=== PATIENT | female | born 1990 | race Caucasian/White ===

== ENCOUNTER 2023-12-01 06:27 | Inpatient (IN) ==
--- OUTSIDE RECORDS SUMMARY | 2023-12-01 06:35 | External Medical Summary | Summary of Care ---
Author Name Unknown Organization [facility] Address [address] [place] [address] Phone [phone] Care Team Providers Care Lien Searcher Name Role Phone Unavailable Primary Care Provider Unavailabl e Reason for Visit * Reason Onset Date Comments Medication Refill 11/28/2023 Encounter Details Date Type Department Care Team (Late st Contact Info) Description 11/28/2023 Refill Family Practice [facility] [address] [place] [id number] Phani Ivy MD [address] [place] [id number] Delayed sleep phase syndrome Allergies Active Allergy Reactions Criticality Noted Date Comments Amoxicillin-Pot Clavulanate Hives High 10/04/19 22 Dust Hives Medium 10/04/2021 documented as of this encounter (statuses as of 11/30/2023) Medications Medication Sig Dispensed Refills Start Date End Date Status Specialty Vitamins Products (VITAMINS FOR HAIR) TABS Take by mouth. 0 Active Ventolin HFA 108 (90 Base) MCG/ACT Inhalation Aerosol SolutionIndications:Ac [place] cough,Pneumonitis Inhale 2 Puffs by mouth every 4 hours as needed for Wheezing. 1 g 0 07/29/2022 Active Naratriptan HCl 2.5 MG Oral Tablet (Amerge)Indications:Mi graine without aura and without status migrainosus, not intractable Take 1 Tablet by mouth as needed for Migraine. at onset of migraine headache, may repeat once after four hours. Up to two pills in 24 hours. 8 Tablet 1 01/16/2023 Active Montelukast Sodium 10 MG Oral Tablet (Singulair) Take 1 tablet daily each evening to prevent allergic nasal symptoms 90 Tablet 3 06/24/2023 Active Cetirizine HCl 10 MG Oral Tablet (ZyrTEC) TAKE 1 TABLET BY MOUTH EVERY DAY IN THE EVENING 90 Tablet 3 09/01/2023 Active tiZANidine HCl 4 MG Oral Tablet (Zanaflex)Indications: Cervicalgia,Unspecifie d temporomandibular joint disorder, unspecified side TAKE 1 TABLET BY MOUTH EVERY 6 HOURS NEEDED FOR MUSCLE SPASMS. 30 Tablet 1 10/21/2023 Active Acetaminophen-Codeine 300-30 MG Oral Tablet (Tylenol #3)Indications:Chronic midline thoracic back pain Take 1 Tablet by mouth every 4 hours as needed for Pain, Moderate. For ongoing therapy 60 Tablet 0 11/20/2023 Active Zolpidem Tartrate 10 MG Oral Tablet (Ambien)Indications:De layed sleep phase syndrome Take 1 tab at bedtime as needed for insomnia. Use sparingly. Not intended for daily use. 30 Tablet 0 11/30/2023 Active Zolpidem Tartrate 10 MG Oral Tablet (Ambien)Indications:De layed sleep phase syndrome Take 1 tab at bedtime as needed for insomnia. Use sparingly. Not intended for daily use. 30 Tablet 0 11/01/2023 4 Discontinue d(Refill) documented as of this encounter (statuses as of 11/30/2023) Active Problems Problem Noted Date Diagnosed Date Mixed rhinitis 05/23/2022 Endometriosis 02/05/2022 History of 2019 novel coronavirus disease (COVID -19) 10/30/2021 Dysfunction of both eustachian tubes 04/20/2020 MEGGAN positive 10/25/2019 Raynaud's disease without gangrene 10/25/2019 Fibromyalgia 10/25/2019 Recurrent urticaria 10/05/2019 GOPI (generalized anxiety disorder) 10/05/2019 Migraine without aura and wi thout status migrainosus, not intractable 02/15/2019 Migraine variant 01/19/2019 Chronic midline thoracic back pain 12/29/2018 Cervicogenic headache 11/19/2018 Adolescent idiopathic scoliosis of thoracolumbar region 12/30/2016 Allergic rhinitis 03/23/2013 Delayed sleep phase syndrome 07/17/2010 IBS (irritable bowel syndrome) documented as of this encounter (statuses as of 11/30/2023) Resolved Problems Problem Noted Date Diagnosed Date Resolved Date Chest tightness 10/05/2019 12/10/2019 Chronic migraine 12/30/2016 01/14/2019 Cough 09/13/2015 12/13/2015 Tick bite 07/11/2014 12/13/2015 Urticaria 03/23/2013 10/05/2019 Overview: since age 13 Routine medical exam 07/11/2011 012 Migraine with aura 07/11/2011 9 BACKACHE NOS 11/21/2005 07/11/2011 Hypermobility syndrome 11/21/200507/11 Other acne 04/08/2003 07/11/2011 BENIGN NEOPLASM SKIN NOS 03/14/2003 documented as of this encounter (statuses as of 11/30/2023) Immunizations Name Administration Dates Next Due DTP Vaccine 05/01/1989 HPV Vaccine, 4-Valent 08/15/2009,04/15/2009,09/2008 Haemophilius B (HIB), unspecified 05/01/1989 OPV - Polio Virus Vaccine (Oral) 05/01/1989 PPD 09/30/2018, 6,08/31/2014,2010 Seasonal Influenza, PF, 6 M & above, IM , (FluLaval or Fluzone) 11/12/2021,05/23/2020,07/26/2019,2017 Seasonal Influenza, Quadriva lent, No Preserve, IM 10/08/2016,06/14/2015 Seasonal Influenza, Split, I IV3, With Preserve, Inj 05/19/2014,07/13/2013,06/11/2012,2010,06/08/2010 TDAP (age 11 and older)(Adacel) 07/11/2011 documented as of this encounter Social History Tobacco Use Types Packs/Day Years Used Date Smoking Tobacco: Never Passive Smoke Exposure: Yes Smokeless Tobacco: Never Comments:parents smoke, solomon mireya in a smoking baar Alcohol Use Standard Drinks/Week Comments Not Currently 0 (1 standard drink = 0.6 oz pure alcohol) glass of wine couple times per week PHQ-2 Answer Date Recorded PHQ Adult Total Score 1 11/12/2021 Hunger Vital Sign Answer Date Recorded Within the past 12 months, y ou worried that your food would run out before you got the money to buy more. Never true 03/10/20 23 Within the past 12 months, t he food you bought just didn't last and you didn't have money to get more. Never true 03/10/2023 Sex and Gender Information Value Date Recorded Sex Assigned at Female 03/10/2023 8:48 AM EDT Gender Identity Female 03/10/2023 8:48 AM EDT Sexual Orientation Straight 01/31/2020 10 :51 AM EDT Job Start Date Occupation Industry Not on file Not on file Not on file documented as of this encounter Miscellaneous Notes * Telephone Encounter - Phani Ivy MD - 11/30/2023 10:34 PM EDT Signed Prescriptions: Disp Refills Zolpidem Tartrate 10 MG Oral Tablet (Ambie*30 Tab*0 Sig: Take 1 tab at bedtime as needed for insomnia. Use sparingly. Not intended for daily use.Authorizing Provider: PHANI IVY * Telephone Encounter - Phani Ivy MD - 11/30/2023 10:33 PM EDT Schedule CPE / refill eval with Dr. Briseno--prev saw Dr Cuevas * Telephone Encounter - Phani Mai [facility] - 11/30/2023 1:07 AM EDT Pending Prescriptions: Disp Refills Zolpidem Tartrate 10 MG Oral Tablet (Ambie*30 Tab*0 Sig: Take 1 tab at bedtime as needed for insomnia. Use sparingly. Not intended for daily use. * Telephone Encounter - Phani Mai [facility] - 11/30/2023 1:04 AM EDT I have reviewed the patients controlled substance dispensing history in the Prescription Drug Monitoring Program in compliance with the [facility] regulations before prescribing a controlled substance. PDMP checked on 11/30/2023. Pending Prescriptions: Disp Refills Zolpidem Tartrate 10 MG Oral Tablet (Ambi*30 Tab*0 Sig: Take 1 tab at bedtime as needed for insomnia. Use sparingly. Not intended for daily use. Last Visit: 03/10/2023 (in office), Visit date not found (telemedicine) Next Visit: Visit date not found Date medication was last filled: 11/01/23 Date medication is due for refill: 11/30/23 [facility]acy: [id number] [address] Is this request for a controlled substance? Yes and Urine Drug Screen was completed Toxicology results: Results for orders placed or performed in visit on 04/22/23 PAIN MANAGEMENT DRUG PANEL, URINE W/ INTERPRETATION Result Value Compliance Interpretation Based on the medication information provided: The presence of codeine, morphine, hydrocodone and hydromorphone is CONSISTENT with the use of codeine. The presence of zolpidem metabolite is CONSISTENT with the use of zolpidem. Amphetamines Screen, U Negative Benzodiazepines Screen, U Negative Cannabinoids Screen, U Negative Cocaine Metabolite Screen, U Negative Fentanyl Screen, U Negative Hydrocodone Screen, U Refer to confirmation results (A) Methadone Metabolite Screen, U Negative Morphine/Codeine Screen, U Refer to confirmation results (A) Oxycodone Screen, U Refer to confirmation results (A) Valid Interpretation Normal Creatinine, U 171 Narrative Cutoff Concentrations: Drug Level Amphetamines 500 ng/mL Benzodiazepines 100 ng/mL Cannabinoids 50 ng/mL Cocaine Metabolite 150 ng/mL Fentanyl 1 ng/mL Hydrocodone / Hydromorphone 300 ng/mL Methadone Metabolite 100 ng/mL Morphine / Codeine 300 ng/mL Oxycodone / Oxymorphone 100 ng/mL Screening results are presumptive and can only be used for medical purposes. Confirmatory testing is available upon request. Please approve if appropriate. Thanks, Phani Mai, PharmD Clinical Pharmacist [facility] ([facility]) (formerly [facility]) [phone] 11/30/2023, 1:05 AM documented in this encounter Plan of Treatment Upcoming Encounters Date Type Department Care Team (Late st Contact Info) Description 12/15/2023 8:40 AM EDT Office Visit Rheumatology [place] [id number] [place] [address] German Bingham MD [address] [place] [address] Health Maintenance Due Date Last Done Comments HPV/Co-Test 2018 Cervical Cancer Screening 06/02/2021 Pap Smear 06/02/2021 06/02/2018 DTaP,Tdap,and Td Vaccines (6 - Td or Tdap) 07/11/2021 07/11/2011, 03/19/2000, 01/21/1994, Additional history exists Depression Screening 11/12/2022 11/12/2021 Influenza Vaccine (FLU shot) (#1) 2023 11/12/2021, 05/23/2020, 07/26/2019, Additional history exists GARDASIL-HPV IMMUNIZATION SERIES Completed 08/15/2009, 04/15/2009, 02/13/2009 COVID-19 Vaccine Discontinued MENINGOCOCCAL (MENACTRA/MENVEO) Aged Out No longer eligible based on patient's age to complete this topic Pneumococcal Vaccine: Pediatrics (0 to 5 Years) and At-Risk Patients (6 to 64 Years) Aged Out No longer eligible based on patient's age to complete this topic documented as of this encounter Medical Devices Not on filedocumented as of this encounter Visit Diagnoses Diagnosis 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
[2023-12-01] MEDS ORDERED: LIDOCAINE 1% LOCAL 20 ML VIAL INFIL PRN (07:23)
[2023-12-01] MEDS: LACTATED RINGER'S 1,000 ML IV PRN (07:45)
[2023-12-01 07:59] LABS: Hematocrit (blood only) 33.9 % (37.0-47.0); Hemoglobin 12.1 g/dl (12.0-16.0); Mean Corpuscular Hemoglobin 30.8 pg (25.0-34.0); Mean Corpuscular Hgb Conc 35.7 g/dL (32.0-36.0); Mean Corpuscular Volume 86.3 fL (80.0-100.0); Mean Platelet Volume 12.2 fL (9.4-12.4); Platelet Count 146 K/uL (130-400); RDW Coefficient of Variation 13.8 % (11.5-14.5); Red Blood Count 3.93 M/uL (4.20-5.40); White Blood Count 10.88 K/ul (4.8-10.8)
[2023-12-01] MEDS: BUTORPHANOL TARTRATE 2 MG/ML VIAL IV STA (08:00)
[2023-12-01] MEDS ORDERED: fentaNYL citrate PF 100 MCG/2 ML VIAL EPI PRN (09:00)
[2023-12-01] MEDS ORDERED: NALOXONE HCL 0.4 MG/1 ML VIAL/CARP IV PRN (09:00)
[2023-12-01] MEDS ORDERED: SODIUM CHLORIDE 0.9% PF INJ 10 ML VIAL EPI PRN (09:00)
[2023-12-01] MEDS ORDERED: BUPIVACAINE 0.25% PF 30 ML VIAL EPI PRN (09:00)
[2023-12-01] MEDS ORDERED: NALOXONE HCL 1 MG in SODIUM CHLORIDE 0.9% 1,000 ML IV PRN (09:00)
[2023-12-01] MEDS ORDERED: LIDOCAINE 2% MPF LOCAL 5 ML VIAL EPI PRN (09:00)
[2023-12-01] MEDS ORDERED: ROPIVACAINE 0.5% PF 5 MG/ML 20 ML VIAL EPI PRN (09:00)
[2023-12-01] MEDS ORDERED: ePHEDrine sulfate 50 MG/ML AMP IV PRN (09:00)
[2023-12-01] MEDS ORDERED: fentANYL 2 MCG/ML BUPIVacaine 0.125%-NSS 100ML BAG EPI PRN (09:00)
[2023-12-01] MEDS ORDERED: diphenhydrAMINE 50 MG/ML VIAL IV PRN (09:00)
[2023-12-01] MEDS ORDERED: NALBUPHINE HCL 5 MG in SYRINGE 0 ML IV PRN (09:00)
--- NOTE | 2023-12-01 09:02 | Anesthesiology Consultation ---
Date of Service December 01, 2023 Assessment & Plan Chart Review Chart Review: Patient NOT seen in Pre Admission Testing and Acceptable Risk for Labor Epidural Consults Requested none ASA ASA2 Proposed Anesthesia Anesthesia Type: Labor Epidural Risk / Benefits Reviewed With: PT / POA / Parent / Guardian, Accepts Plan and Informed Consent Obtained History Height/Weight Height: 5 ft 2 in Weight: 58.06 kg Allergies Allergy/AdvReac Type Severity Reaction Status Date / Time amoxicillin [From Augmentin] Allergy Severe RASH/LIPS Verified 11/30/23 13:11 SWELLING clavulanic acid Allergy Severe RASH/LIPS Verified 11/30/23 13:11 [From Augmentin] SWELLING animal dander Allergy Intermediate hives Verified 11/30/23 13:11 house dust Allergy Intermediate Hives Verified 11/30/23 13:11 pollen extracts Allergy Intermediate hives Verified 11/30/23 13:11 ragweed pollen Allergy Intermediate hives Verified 11/30/23 13:11 Medications Home Medications Medication Instructions Recorded Confirmed Last Taken cetirizine 10 mg tablet (Zyrtec) 10 mg PO HS 07/31/21 11/30/23 11/29/23 22:00 montelukast 10 mg tablet 10 mg PO HS 07/31/21 11/30/23 11/29/23 22:00 (Singulair) tizanidine 4 mg tablet 2 mg PO HS 07/31/21 11/30/23 11/29/23 22:00 zolpidem 10 mg tablet (Ambien) 10 mg PO HS 07/31/21 11/30/23 11/25/23 22:00 acetaminophen 300 mg-codeine 30 mg 1 tab PO Q6H pain #10 tabs 11/30/23 Unknown tablet Active Medications Generic Name Dose Route Start Last Admin Trade Name Freq PRN Reason Stop Dose Admin Lactated Ringer's 1,000 mls @ 125 mls/hr 12/01/23 07:23 12/01/23 09:01 Lr IV 12/03/23 07:22 125 mls/hr .Q8H PRN Infusion L&D Protocol Protocol NPO Date Last Intake of Fluids: 12/01/23 Time Last Intake of Fluids: 09:00 Date Last Intake of Solids: 11/30/23 Time Last Intake of Solids: 20:30 Past Medical History Medical History Scoliosis MILD Endometriosis Anxiety Fibromyalgia Migraine IBS (irritable bowel syndrome) Exercise / Class Metabolic Activity 1 > 8 Run/Swim/Ski/Tennis Past Family History Family History Father Family history of diabetes mellitus Grandmother No problems noted. Grandfather (Maternal) Family history of colon cancer Hearing loss Colorectal cancer Hypertension Grandfather (Paternal) Hearing loss Heart disease Cancer unknown type Hypertension Family history of diabetes mellitus Grandmother (Paternal) Hypertension Grandmother (Maternal) Hypertension Mother Allergies Other No family history of adverse response to anesthesia No family history of bleeding disorder Past Surgical History Surgical History History of endoscopic sinus surgery endoscopic sinus surgery, right and left frontal sinuses total ethmoidectomies, right and left maxillary, and left side septum cicatrix excision on 08/02/21 - Dr. Perez Nausea and vomiting after administration of anesthetic agent History of conization of cervix History of sinus surgery History of laparoscopy History of hand surgery RT HAND/PINKY FINGER - HARDWARE REMOVED History of tonsillectomy Past Anesthesia History No Hx of Anesthesia Complications and No Family Hx of Anesthesia Complications History of PONV No Hx of PONV and No Hx of Motion Sickness Social History Smoking Status: Never smoker Do You Dip or Chew Tobacco: No Hx Alcohol Use: No Alcohol type: wine and other alcohol intake frequency: a few times a week Hx Substance Use: No substance use type: does not use Review of Systems ROS Unobtainable: All systems reviewed & are unremarkable except as noted in HPI & below Physical Exam Vital Signs Last Vital Signs Temp 36.7 C 12/01/23 07:34 Pulse 82 12/01/23 08:57 Resp 20 12/01/23 07:34 BP 142/65 H 12/01/23 06:55 Pulse Ox 98 12/01/23 08:57 ENMT Mouth: no TMJ abnormality Thyromental Distance: > or= 3.5 Finger Breadths Mallampati Class: II Neck normal visual inspection and trachea midline; neck extension not limited Respiratory normal respiratory effort Auscultation: lungs clear to auscultation bilaterally Cardiovascular Rate/Rhythm: regular rate and regular rhythm Heart Sounds: no murmur Musculoskeletal Spine: normal cervical ROM Extremities: full ROM of extremities Neurologic moves all extremities Psychiatric Orientation: alert and oriented x 3 Testing Laboratory Results 12/01/23 07:38
[2023-12-01] MEDS: fentANYL 2 MCG/ML BUPIVacaine 0.125%-NSS 100ML BAG ONE (09:16)
[2023-12-01] MEDS: BUTORPHANOL TARTRATE 2 MG/ML VIAL ONE (09:18)
[2023-12-01] MEDS: fentaNYL citrate PF 100 MCG/2 ML VIAL ONE (09:18)
[2023-12-01] MEDS: BUPIVACAINE 0.25% PF 30 ML VIAL ONE (09:24)
[2023-12-01] MEDS: LIDOCAINE 2%/EPINEPHRINE 1:200,000 20 ML PF ONE (09:24)
[2023-12-01] MEDS: OXYTOCIN 30 UNITS/NSS 30 UNITS/500 ML BAG IV PRN ×2 (14:13→15:22)
[2023-12-01] MEDS ORDERED: ACETAMINOPHEN 325 MG TAB PO PRN (14:20)
[2023-12-01] MEDS ORDERED: HYDROCORTISONE ACETATE 25 MG SUPP PR PRN (14:20)
[2023-12-01] MEDS: miSOPROStoL 200 MCG TAB ONE (14:20)
--- NOTE | 2023-12-01 14:26 | Delivery Summary ---
Vaginal Delivery Summary Date of Service December 01, 2023 Vaginal Delivery Summary Patient is a 33-year-old 1 para 1 followed in our office for care and delivery. Well dated with a first trimester ultrasound. Was admitted with wesly rupture membranes and contractions at 37 weeks 3 days gestation. Was given IV Stadol. Then epidural. She obtained good pain relief. Pushed out a live female infant in 1-1/2 hours. was delivered direct occiput anterior position over an intact perineum. Nuchal cord was reduced over the head prior to delivery of the infant. Cord was allowed to pulse for 1 full minute before clamping. Cord was clamped cut by the father. Cord blood was taken. Inspection of the perineum revealed a first-degree laceration at 6:00. Defect was approximated with a 2-0 Vicryl with a running suture out to beyond the hymenal ring. A deep suture was used to approximate the bulbocavernosus muscle. Second deep sutures used approximate the perineal body. Running subcuticular sutures used approximate the perineal skin edges. Sponges were removed from the vagina. Uterus contracted nicely there were several large clots expelled. Rectal Cytotec was used. Estimated blood loss was 200 mL.
[2023-12-01] MEDS: IBUPROFEN 600 MG TAB PO PRN (15:21)
[2023-12-01] MEDS: ePHEDrine sulfate 50 MG/ML AMP ONE (15:48)
[2023-12-01] MEDS: fentaNYL citrate PF 100 MCG/2 ML VIAL EPI STA (15:49)
[2023-12-01] MEDS: SODIUM CHLORIDE 0.9% PF INJ 10 ML VIAL EPI STA (15:49)
[2023-12-01] MEDS: BUPIVACAINE 0.25% PF 30 ML VIAL EPI STA (15:49)
[2023-12-01] MEDS: SODIUM CHLORIDE 0.9% PF INJ 10 ML VIAL ONE (15:49)
[2023-12-01] MEDS: LIDOCAINE 2%/EPINEPHRINE 1:200,000 20 ML PF EPI STA (15:49)
[2023-12-01] MEDS: ACETAMINOPHEN W/CODEINE #3 1 TAB PO PRN (15:52)
--- NOTE | 2023-12-01 16:23 | Anesthesia Procedure Note ---
Date of Service December 01, 2023 Anesthesia Post Epidural Note Vital Signs Vital Signs: Temp Pulse Resp BP Pulse Ox 37.1 C 86 16 161/70 H 92 12/01/23 13:25 12/01/23 16:12 12/01/23 14:45 12/01/23 16:12 12/01/23 14:20 Pain Intensity Bilateral Abdomen: Pain Intensity: 6 Perineal: Pain Intensity: 4 Notes Mental Status: alert / awake / arousable and participated in evaluation Nausea / Vomiting: adequately controlled Pain: adequately controlled Airway Patency, RR, SpO2: stable & adequate BP & HR: stable & adequate Hydration State: stable & adequate Neuraxial Anesthesia: was administered and sensory block is resolving Anesthetic Complications: no major complications apparent Epidural: Removed without complications and With tip intact
[2023-12-01] MEDS: LABETALOL HCL 100 MG TAB PO ONE (16:30)
[2023-12-01] MEDS: miSOPROStoL 200 MCG TAB PR ONE (16:56)
[2023-12-01] MEDS: oxyCODONE/ACETAMINOPHEN 5mg/325mg TAB PO PRN (18:38)
[2023-12-01] MEDS: BENZOCAINE 20% SPRY 85 APPLN/85 GM CAN EXT PRN (18:38)
[2023-12-01] MEDS: DOCUSATE SODIUM 100 MG CAP PO SCH (20:10)
[2023-12-01] MEDS: LABETALOL HCL 100 MG TAB PO SCH (20:10)
[2023-12-02 06:34] LABS: Hemoglobin 9.7 g/dl (12.0-16.0); Mean Corpuscular Hemoglobin 29.8 pg (25.0-34.0); Mean Corpuscular Hgb Conc 33.4 g/dL (32.0-36.0); Mean Corpuscular Volume 89.2 fL (80.0-100.0); Platelet Count 123 K/uL (130-400); RDW Standard Deviation 45.5 fL (36.4-46.3); Red Blood Count 3.25 M/uL (4.20-5.40); White Blood Count 13.47 K/ul (4.8-10.8)
[2023-12-02] MEDS: DIPHTHER/TETAN/PERTUS Vaccine (Tdap, Adol/Adult) 0.5mL IM ONE (07:28)
[2023-12-02] MEDS: PRENATAL VITAMIN 1 TAB PO SCH (07:45)
--- NOTE | 2023-12-02 09:07 | Obstetrical Progress Note ---
Date of Service December 02, 2023 Assessment & Plan Admission and Anticipated Discharge Date Admission Date: December 01, 2023 Subjective abdomen soft and non tender no calf tenderness ambulating well vaginal bleeding scant hgb 9.7 Results & Data Vital Signs (Past 12 Hours) Vital Signs Temp Pulse Resp BP Pulse Ox O2 Del Method 12/02/23 07:45 36.7 C 93 H 18 119/76 97 Room Air 12/02/23 03:00 36.7 C 77 17 147/84 H 98 Room Air 12/01/23 23:45 36.6 C 77 16 138/84 97 Room Air
[2023-12-02] MEDS ORDERED: bisacodyL 5 MG TABEC PO SCH (20:00)
[2023-12-03] MEDS ORDERED: bisacodyL 10 MG SUPP PR PRN (14:20)
== END 2023-12-02 16:15 | disposition home or self-care (01) | DRG 807 ==
LOC: OPB 06:27 → 4S1 06:31 → 4E1 17:07